=== PATIENT | female | born 1985 | race Caucasian/White ===

== ENCOUNTER 2022-11-13 10:16 | Emergency (ER) | payer OTHER, SELFPAY ==
[2022-11-13] VITALS (12 sets, daily range): BP systolic 97–145; BP diastolic 62–101; PULSE 43–80; RESP 16; TEMP 37; O2SAT 94–100; BMI 27.4
--- NOTE | 2022-11-13 11:08 | CRLHL7_ITS ---
For Patients: As a result of the Cures Act, medical imaging exams and procedure reports are released immediately into your electronic medical record. You may view this report before your referring provider. If you have questions, please contact your health care provider. INDICATION: Dizziness COMPARISON: none TECHNIQUE: A CT volumetric acquisition was performed of the brain without IV contrast. Please note that all CT scans at this facility use dose modulation, iterative reconstruction, and/or weight-based dosing when appropriate to reduce radiation dose to as low as reasonably achievable. FINDINGS: There are calcifications within the posterior fossa adjacent to the 4th ventricle. No hydrocephalus. No extra-axial fluid collection. No midline shift. No hemorrhage. No fracture or sinus disease. IMPRESSION: No hemorrhage or hydrocephalus. Calcifications within the posterior fossa adjacent to the 4th ventricle. Although these are probably indolent and of doubtful significance, cannot exclude sequela of old infection. Given the history of headaches would consider MRI brain for further evaluation in order to exclude any residual inflammation. Please note that all CT scans at this facility use dose modulation, iterative reconstruction, and/or weight-based dosing when appropriate to reduce radiation dose to as low as reasonably achievable. Dictated by Alexander Ortega MD @ 11/13/2022 12:26:34 PM (Electronically Signed)
--- NOTE | 2022-11-13 11:09 | ED_ITS ---
HPI - General Adult General Chief complaint: Unspecified Complaint, Adult Stated complaint: neurological issues Time Seen by Provider: 11/13/22 10:43 History of Present Illness HPI narrative: Patient is a very pleasant 29 year white female who sees Dr. Centeno [facility] in [place]. The patient reports longstanding anxiety depression. She has tried handed to present before but had a bad reaction. She is currently started a new self-employed guarding job, and has been under lot of stress. Patient reports multiple symptoms over the last few weeks even longer including inability to eat fully some dizziness headaches, the patient does have history of migraines. The patient reports intermittent numbness in her hands feet and it is migratory and not unilateral. She has had no marked weakness of her extremities. She has a history of skin rash in eczema on her hands due to her work. She does not recall any specific rashes although she occasionally gets hives unknown as the etiology. Patient has seen Dr. Centeno and had elevated liver function tests in the past, she has a version alcohol is she gets very sick from it. She is quite concerned about her situation and presented to the ED. She shows good insight into her situation. Related Data Home Medications Medication Instructions Recorded Confirmed sumatriptan succinate 25 mg tablet 25 mg PO Q2H PRN migraine 11/13/22 11/13/22 Allergies Allergy/AdvReac Type Severity Reaction Status Date / Time No Known Drug Allergies Allergy Verified 11/13/22 10:30 Review of Systems Status of ROS: Reports: 10 or more systems reviewed and unremarkable except as noted in History and below PFSH PFS Social History Smoking Status: Never smoker Do you use any of these nicotine containing products: None Second hand tobacco smoke exposure: No How often do you have a drink containing alcohol: never How often do you have six or more drinks on one occasion: Never AUDIT-C Alcohol total score: 0 Non-prescribed substance use: denies use service: No Exam Narrative: Exam Narrative: Objective: Patient's vital signs unremarkable Alert orient x3 Pupils react to light No scleral icterus No facial asymmetry Mouth is clear Neck is supple Chest is clear Heart rhythm regular without murmur Abdomen benign soft nontender no masses or tenderness as mention next Extremities without edema neurologic nonfocal good peripheral perfusion noted No skin rashes noted skin warm and dry Const: Vital Signs, click to edit/add: Vital Signs - 24 hr 11/13/22 10:24 11/13/22 10:39 11/13/22 11:02 Temperature 98.6 F Pulse Rate 75 Pulse Rate [Left P ulse Oximeter] 80 Respiratory Rate 16 Blood Pressure 134/91 H Blood Pressure [Le ft Upper Arm] 145/101 H Pulse Oximetry 100 100 Oxygen Delivery Me thod Room Air 11/13/22 11:22 11/13/22 11:30 11/13/22 11:32 Temperature Pulse Rate 68 63 65 Pulse Rate [Left P ulse Oximeter] Respiratory Rate Blood Pressure 97/74 Blood Pressure [Le ft Upper Arm] Pulse Oximetry 100 100 100 Oxygen Delivery Me thod 11/13/22 11:33 11/13/22 12:00 11/13/22 12:01 Temperature Pulse Rate 77 43 L 43 L Pulse Rate [Left P ulse Oximeter] Respiratory Rate Blood Pressure 101/62 Blood Pressure [Le ft Upper Arm] Pulse Oximetry 100 100 100 Oxygen Delivery Me thod 11/13/22 12:02 11/13/22 12:30 11/13/22 12:31 Temperature Pulse Rate 46 L 63 72 Pulse Rate [Left P ulse Oximeter] Respiratory Rate Blood Pressure 118/77 Blood Pressure [Le ft Upper Arm] Pulse Oximetry 100 99 94 Oxygen Delivery Me thod Course Vital Signs Vital signs: Initial Vital Signs Temperature 98.6 F 11/13/22 10:24 Temperature Source Temporal Artery Scan 11/13/22 10:24 Pulse Rate 80 11/13/22 10:24 Pulse Rhythm Regular 11/13/22 10:24 Pulse Strength 3+ Normal 11/13/22 10:24 Respiratory Rate 16 11/13/22 10:24 Blood Pressure 145/101 H 11/13/22 10:24 Blood Pressure Mean 115 H 11/13/22 10:24 Blood Pressure Position Sitting 11/13/22 10:24 Pulse Oximetry 100 11/13/22 10:24 Oxygen Delivery Method Room Air 11/13/22 10:24 Vital Signs Temperature 98.6 F 11/13/22 10:24 Pulse Rate 80 11/13/22 10:24 Respiratory Rate 16 11/13/22 10:24 Blood Pressure 145/101 H 11/13/22 10:24 Pulse Oximetry 100 11/13/22 10:24 Oxygen Delivery Method Room Air 11/13/22 10:24 Temperature 98.6 F 11/13/22 10:24 Pulse Rate 72 11/13/22 12:31 Respiratory Rate 16 11/13/22 10:24 Blood Pressure 118/77 11/13/22 12:31 Pulse Oximetry 94 11/13/22 12:31 Oxygen Delivery Method Room Air 11/13/22 10:24 Medical Decision Making MDM Narrative Medical decision making narrative: Patient is a 37 year white female with history of migraines, with a good amount of psychosocial stress currently. She has a multitude of symptoms, that I suspect could be related to anxiety/stress. She is feeling better now that she is in the ER and feels a little reassured that some studies will be done. She is currently having her menstrual cycle. She is agreed agreeable after informed mutual decision making to get some workup including given her multitude of neurologic complaints and her history of migraine headaches a head CT scan without contrast, laboratory studies. She is able to eat and drink adequately. Her vital signs look unremarkable. If her studies look reassuring then I think return to [facility] for evaluation of anxiety depression would be appropriate. Will give her a topical 2% Nizoral and triamcinolone for her hand rash. Advised to keep her hands dry as possible Addendum: Patient's lab studies look reassuring, no evidence of inflammation abnormality. She has unremarkable CT scan of the head, but does have some calcification in the 4th ventricle area, that could be related to prior infection or just simply nonspecific finding of no significance per Radiology. They did suggest she consider an MRI scan she can talk about that with her [facility] doctor for follow-up given she does have a history of headaches. At this time and recommend she consult with her regular doctor regarding anxiety/stress. She was comfortable this plan will follow up as directed. Return to ED as needed. Patient also reports she has neurology follow-up in 2 weeks, and recommend follow-up MRI per Radiology as mention. Lab Data Labs: Lab Results 11/13/22 Range/Units 11:30 WBC 3.25 L (4.50-11.00) K/uL RBC 4.44 (4.00-5.20) m/uL Hgb 14.2 (12.0-16.0) gm/dL Hct 42.2 (33.0-51.0) % MCV 95 (80-100) fL MCH 32 (26-34) pg MCHC 34 (32-36) gm/dL RDW Coeff of Gabriel 12.6 (11.5-15.5) % Plt Count 223 (140-440) K/uL Neut % (Auto) 52.7 (42.0-72.0) % Lymph % (Auto) 37.2 (20-44) % Dawes % (Auto) 5.8 (0.0-11.0) % Eos % (Auto) 3.1 (0.0-7.0) % Baso % (Auto) 1.2 (0.0-3.0) % Neut # (Auto) 1.70 (1.7-7.0) K/uL Lymph # (Auto) 1.20 (0.90-2.90) K/uL Dawes # (Auto) 0.20 (0.00-0.90) K/UL Eos # (Auto) 0.10 (0.00-0.50) K/uL Baso # (Auto) 0.00 (0.00-0.30) K/uL Sodium 139 (135-149) mmol/L Potassium 4.4 (3.6-5.1) mmol/L Chloride 103 (96-114) mmol/L Carbon Dioxide 29 (20-32) mmol/L BUN 10 (5-24) mg/dL Creatinine 0.7 (0.5-1.5) mg/dL Estimated Creat Clear 105.97 Estimated GFR 113 ml/min Glucose 90 (60-115) mg/dL Calcium 9.7 (8.4-10.6) mg/dL Total Bilirubin 0.7 (0.1-1.5) mg/dL Direct Bilirubin 0.2 (0.0-0.5) mg/dL AST 30 (12-35) U/L ALT 35 (4-35) U/L Alkaline Phosphatase 41 (40-150) U/L C-Reactive Protein < 0.5 L (0.5-1.0) mg/dL Total Protein 8.0 (6.0-8.3) g/dL Albumin 5.0 (3.3-5.0) g/dL Amylase 61 (18-89) U/L TSH 1.160 (0.270-4.20) uIU/mL HCG, Qual Negative (Negative) Discharge Plan Discharge Clinical Impression: Dizziness, Dyshidrotic eczema, Psychosocial stressors Patient Disposition: Home w/ Parent or Adult Condition: Stable Additional Instructions: Recheck with primary care within the next week, light activity, lotions to the hand as prescribed. May try moisturizing lotion to the hands as well daily. Keep the hands as dry as possible otherwise. There is some calcium in the back of your brain, that likely is of no significance, but the radiologist stated that an MRI might be reasonable to exclude any other abnormality such as prior infection or other concern. I think that is a good idea to discuss this with your regular regular physician. Activity Level: Light activity Discharge Diet: Regular Prescriptions: No Action sumatriptan succinate 25 mg tablet 25 mg PO Q2H PRN (Reason: migraine) Follow Up/Referrals: Provider,Not a Local [Primary Care Provider] - Stand Alone Forms: [employer] Info Instructions
[2022-11-13 11:47] LABS: Basophils Percent Auto 1.2 % (0.0-3.0); Eosinophils Percent Auto 3.1 % (0.0-7.0); Hematocrit 42.2 % (33.0-51.0); Hemoglobin* 14.2 gm/dL (12.0-16.0); Lymphocytes Percent Auto 37.2 % (20-44); Mean Corpuscular HGB Conc 34 gm/dL (32-36); Mean Corpuscular Hemoglobin 32 pg (26-34); Mean Corpuscular Volume 95 fL (80-100); Monocytes Percent Auto 5.8 % (0.0-11.0); Neutrophils Percent Auto 52.7 % (42.0-72.0); Platelet Count* 223 K/uL (140-440); RDW Coefficient of Variation % 12.6 % (11.5-15.5); Red Blood Count 4.44 m/uL (4.00-5.20); White Blood Count* 3.25 K/uL (4.50-11.00)
[2022-11-13 11:49] LABS: Slide Review Reflex No
[2022-11-13 12:17] LABS: HCG Qualitative Serum* Negative (Negative)
[2022-11-13 12:22] LABS: Chloride* 103 mmol/L (96-114)
[2022-11-13 12:23] LABS: Potassium* 4.4 mmol/L (3.6-5.1); Sodium* 139 mmol/L (135-149)
[2022-11-13 12:25] LABS: Amylase* 61 U/L (18-89); Creatinine* 0.7 mg/dL (0.5-1.5); Est. Creatinine Clearance* 105.97; Estimated Glomerular Filt Rate 113 ml/min
[2022-11-13 12:26] LABS: Alanine Aminotransferase* 35 U/L (4-35); Alkaline Phosphatase* 41 U/L (40-150); Aspartate Amino Transferase* 30 U/L (12-35); Bilirubin Direct* 0.2 mg/dL (0.0-0.5); Bilirubin Total* 0.7 mg/dL (0.1-1.5); Blood Urea Nitrogen* 10 mg/dL (5-24); Calcium* 9.7 mg/dL (8.4-10.6); Carbon Dioxide* 29 mmol/L (20-32); Glucose* 90 mg/dL (60-115)
[2022-11-13 12:33] LABS: C Reactive Protein* < 0.5 mg/dL (0.5-1.0)
== END 2022-11-13 12:51 | disposition home or self-care (01) ==
PROVIDERS: Emergency Provider Family Medicine
DX: R42 Dizziness and giddiness (principal); L30.1 Dyshidrosis [pompholyx]; F43.9 Reaction to severe stress, unspecified
CPT/HCPCS: 36415; 70450; 80048; 80076; 82150; 84443; 84703; 85025; 86140; 99284